=== PATIENT | male | born 1975 | race Caucasian/White ===

== ENCOUNTER 2017-07-11 11:00 | Inpatient (IN) | payer BC, SELFPAY ==
--- NOTE | 2017-07-11 08:26 | US_ITS ---
US abdomen limited: HISTORY: ITS.REASON: RUQ PAIN, FEVER,CHILLS ORDERING PHYSICIAN: Irwin Riddle MD PATIENT AGE: 42 years COMPARISON: None FINDINGS: PANCREAS: Unremarkable. No obvious mass or abnormal fluid collection. No ductal dilatation LIVER: No focal liver lesions demonstrated. Homogeneous echogenicity. No intrahepatic biliary ductal dilatation evident RIGHT KIDNEY: Unremarkable. Normal size and echogenicity. No hydronephrosis GALLBLADDER: There are numerous gallstones. There is mild thickening of the gallbladder wall measuring up to 5 mm. No pericholecystic fluid or biliary dilatation evident. The common duct is normal at 4 mm. IMPRESSION: Cholelithiasis with mild gallbladder wall thickening
[2017-07-11 10:02] LABS: Basophils # 0.1 K/mm3 (0-0.2); Basophils % 0.4 % (0.1-2.0); Eosinophils # 0.2 K/mm3 (0.0-0.4); Eosinophils % 1.2 % (0.1-12.0); Hematocrit 50.4 % (42.0-52.0); Hemoglobin 16.5 g/dL (14.1-18.0); Lymphocytes # 1.8 K/mm3 (0.7-4.5); Lymphocytes % 11.2 K/mm3 (10-50); Mean Corpuscular HGB Conc 32.8 g/dL (31.8-35.4); Mean Corpuscular Hemoglobin 29.7 pg (27.0-31.2); Mean Corpuscular Volume 90.6 fl (80-94); Mean Platelet Volume 8.3 fl (7.4-10.4); Monocytes # 0.8 K/mm3 (0.1-1.0); Monocytes % 5.1 % (1.7-9.3); Neutrophils % 82.1 % (37.0-80.0); Platelet Count 227 K/mm3 (142-424); Red Blood Count 5.56 M/mm3 (4.60-6.20); Red Cell Distribution Width 12.6 % (11.5-17.5); White Blood Count 15.9 K/mm3 (4.8-10.8)
[2017-07-11 10:18] LABS: MANUAL DIFFERENTIAL MANUAL DIFFERENTIAL (MANUAL DIFF)
[2017-07-11 10:20] LABS: Alanine Aminotransferase 37 U/L (12-78); Albumin Level 3.8 gm/dL (3.4-5.0); Albumin/Globulin Ratio 0.8 (1.1-1.8); Alkaline Phosphatase 101 U/L (46-116); Amylase 31 U/L (25-125); Anion Gap 14.3 mEq/L (5-15); Aspartate Amino Transferase 14 U/L (15-37); Bilirubin,Total 2.3 mg/dL (0.2-1.0); Blood Urea Nitrogen 14 mg/dL (7-18); Carbon Dioxide 26 mmol/L (21.0-32.0); Chloride 99 mmol/L (98-107); Creatinine,Serum 1.17 mg/dL (0.70-1.30); Estimated Glomerular Filt Rate 69 ml/min (>60); GFR (African American) 83 ML/MIN (>60); Globulin 4.7 gm/dl (1.3-3.2); Glucose 105 mg/dL (74-106); Lipase 62 u/L (73-393); Potassium 4.3 mmoL/L (3.5-5.1); Sodium 135 mmol/L (136-145); Total Protein,Serum 8.5 gm/dL (6.4-8.2)
[2017-07-11 10:58] LABS: Eosinophils % 2 % (0-3); Lymphocytes % 7 % (10-50); Monocytes % 14 % (2-9); Neutrophils % 76 % (42-76); Total Cells Counted 100
[2017-07-11 10:59] LABS: Platelet Estimate Normal; RBC Morphology Normal
[2017-07-11 11:04] VITALS: BMI 33.6
[2017-07-11 11:20] VITALS: BP 147/85; PULSE 86; RESP 18; TEMP 37.3; O2SAT 97
--- NOTE | 2017-07-11 11:59 | HMH.PHACONS ---
- Pharmacy Consult Date: 07/11/17 Time: 11:59 Referring provider: DR. SCHULTZ Reason for Consult:: TOBRAMYCIN DOSING Allergies and ADEs:: Allergies Allergy/AdvReac Type Severity Reaction Status Date / Time No Known Allergies Allergy Unverified 04/25/17 15:10 Home Medications:: Home Medications Medication Instructions Recorded Confirmed Type Unobtainable [Unobtainable] 07/11/17 07/11/17 History Height: 1.85 m Weight: 115.666 kg Laboratory Results:: Laboratory Results - last 24 hr 07/11/17 09:45: Sodium 135 L, Potassium 4.3, Chloride 99, Carbon Dioxide 26, Anion Gap 14.3, BUN 14, Creatinine 1.17, Estimated GFR 69, Est GFR ( Amer) 83, Glucose 105, Calcium 9.0, Total Bilirubin 2.3 H, AST 14 L, ALT 37, Alkaline Phosphatase 101, Total Protein 8.5 H, Albumin 3.8, Globulin 4.7 H, Albumin/Globulin Ratio 0.8 L, Amylase 31, Lipase 62 L 07/11/17 09:45: WBC 15.9 H, RBC 5.56, Hgb 16.5, Hct 50.4, MCV 90.6, MCH 29.7, MCHC 32.8, RDW 12.6, Plt Count 227, MPV 8.3, Neut % (Auto) 82.1 H, Lymph % (Auto) 11.2, [place] % (Auto) 5.1, Eos % (Auto) 1.2, Baso % (Auto) 0.4, Neut # (Auto) 13.0 H, Lymph # (Auto) 1.8, [place] # (Auto) 0.8, Eos # (Auto) 0.2, Baso # (Auto) 0.1, Total Counted 100, Neutrophils % (Manual) 76, Lymphocytes % (Manual) 7 L, Monocytes % (Manual) 14 H, Eosinophils % (Manual) 2, Basophils % (Manual) 1.0, Platelet Estimate Normal, RBC Morphology Normal Medical History: Denies:: Cancer, Diabetes Mellitus Type 1, Diabetes Mellitus Type 2, MRSA Assessment and Plan - Assessment and plan all Dx Assessment and Plan for all problems:: BASED ON PATIENT'S FACTORS, RECOMMEND STARTING WITH TOBRAMYCIN 480 MG Q24H AT 1300 TODAY. PHARMACY WILL FOLLOW DAILY AND ADJUST APPROPRIATE. DELLA BRICEÑO, PHARMD
--- NOTE | 2017-07-11 12:50 | PC.NURSE ---
paged surgeon education instructor at [phone] time for consult. awaiting call back
--- NOTE | 2017-07-11 13:06 | XR_ITS ---
XR acute abdomen series HISTORY: ITS.REASON: abdominal pain ORDERING PHYSICIAN: Irwin Riddle MD PATIENT AGE: 42 years COMPARISON: None FINDINGS: Frontal view of the chest shows no acute finding. Upright and supine views of the abdomen show nonspecific nonobstructive bowel gas pattern. A surgical clip is present in the mid pelvic region. No acute bony anomalies or abnormal calcifications. IMPRESSION: Negative acute abdominal series
--- NOTE | 2017-07-11 13:13 | HMH.GSCON ---
*Admission Date: 07/11/17 *Chief complaint: Abdominal pain *History of present illness: Patient is a 42-year-old white male from [place] who is a direct admit from [facility] internal medicine today. He gives a several day history of intermittent severe bowel pain. He has had several acute exacerbations with attacks of significant pain. This is mostly located in the mid upper abdomen and right upper quadrant. He had been seen in the emergency department in [place] on 07/08/17. Exact details of this evaluation are unclear. However the patient states that it was recommended he follow-up with his primary care provider for possible gallbladder evaluation. He was seen in the office yesterday and had an ultrasound ordered this morning. Ultrasound report is pending at the time of this dictation but review of imaging reveals gallstones. He was admitted for inpatient management due to ongoing right upper quadrant pain and tenderness along with fevers and chills. Surgical consultation was obtained. Review of Systems - Constitutional Reports body ache(s), Reports chills, Reports fever(s) - Eyes Denies change in vision - ENT Denies abnormal hearing - *Cardiovascular Denies chest pain - *Respiratory Denies shortness of breath - *Gastrointestinal Reports abdominal pain, Denies change in stools - *Genitourinary Denies difficulty urinating Comments: Positive for dark colored urine - *Musculoskeletal Denies abnormal walking - *Neurologic Denies dizziness [facility] History Medical History: Denies:: Cancer, Diabetes Mellitus Type 1, Diabetes Mellitus Type 2, MRSA Comment: Achalasia Other Surgeries: Yes: EGD (multiple for dilation), Other (Laparoscopic Heller myotomy) Amputation: No Fractures: No - *Social History Educational Level: Completed Graduate School Smoking Status: Never smoker Alcohol Intake: never Occupational Status: employed Housing: house Household Members: spouse, children - Psychiatric History Expresses thoughts of harming self/others: None Suicide Plan Description: No Plan *Family Hx:: Coronary Artery Disease, Diabetes Meds Home Medications Medication Instructions Recorded Confirmed Type Hydrocod/Acet 5/325 mg [[place] 1 tab PO Q6HP PRN 07/11/17 07/11/17 History 5/325mg tablet] Naproxen/Esomeprazole Mag [Vimovo 1 each PO BIDP PRN 07/11/17 07/11/[address] 500-20 mg Tablet] Ondansetron [Zofran 4mg ODT] 4 mg PO Q4HP PRN 07/11/17 07/11/17 History Allergies Allergy/AdvReac Type Severity Reaction Status Date / Time No Known Allergies Allergy Unverified 04/25/17 15:10 Exam Vital signs and Labs for Last 24 Hours: Temp Pulse Resp BP Pulse Ox 99.1 F 86 18 147/85 97 07/11/17 11:20 07/11/17 11:20 07/11/17 11:20 07/11/17 11:20 07/11/17 11:20 Laboratory Results - last 24 hr 07/11/17 09:45: Sodium 135 L, Potassium 4.3, Chloride 99, Carbon Dioxide 26, Anion Gap 14.3, BUN 14, Creatinine 1.17, Estimated GFR 69, Est GFR ( Amer) 83, Glucose 105, Calcium 9.0, Total Bilirubin 2.3 H, AST 14 L, ALT 37, Alkaline Phosphatase 101, Total Protein 8.5 H, Albumin 3.8, Globulin 4.7 H, Albumin/Globulin Ratio 0.8 L, Amylase 31, Lipase 62 L 07/11/17 09:45: WBC 15.9 H, RBC 5.56, Hgb 16.5, Hct 50.4, MCV 90.6, MCH 29.7, MCHC 32.8, RDW 12.6, Plt Count 227, MPV 8.3, Neut % (Auto) 82.1 H, Lymph % (Auto) 11.2, [place] % (Auto) 5.1, Eos % (Auto) 1.2, Baso % (Auto) 0.4, Neut # (Auto) 13.0 H, Lymph # (Auto) 1.8, [place] # (Auto) 0.8, Eos # (Auto) 0.2, Baso # (Auto) 0.1, Total Counted 100, Neutrophils % (Manual) 76, Lymphocytes % (Manual) 7 L, Monocytes % (Manual) 14 H, Eosinophils % (Manual) 2, Basophils % (Manual) 1.0, Platelet Estimate Normal, RBC Morphology Normal I & O for Last 24 hours: Intake & Output 07/09/17 07/10/17 07/11/17 07/12/17 11:59 11:59 11:59 11:59 Weight 255 lb 255 lb - Constitutional no acute distress - *Routine Respiratory Exam Present
--- NOTE | 2017-07-11 13:16 | P.CONS_ITS ---
*Admission Date: 07/11/17 *Chief complaint: Abdominal pain *History of present illness: Patient is a 42-year-old white male from [place] who is a direct admit from [facility] internal medicine today. He gives a several day history of intermittent severe bowel pain. He has had several acute exacerbations with attacks of significant pain. This is mostly located in the mid upper abdomen and right upper quadrant. He had been seen in the emergency department in [place] on 07/08/17. Exact details of this evaluation are unclear. However the patient states that it was recommended he follow-up with his primary care provider for possible gallbladder evaluation. He was seen in the office yesterday and had an ultrasound ordered this morning. Ultrasound report is pending at the time of this dictation but review of imaging reveals gallstones. He was admitted for inpatient management due to ongoing right upper quadrant pain and tenderness along with fevers and chills. Surgical consultation was obtained. Review of Systems - Constitutional Reports body ache(s), Reports chills, Reports fever(s) - Eyes Denies change in vision - ENT Denies abnormal hearing - *Cardiovascular Denies chest pain - *Respiratory Denies shortness of breath - *Gastrointestinal Reports abdominal pain, Denies change in stools - *Genitourinary Denies difficulty urinating Comments: Positive for dark colored urine - *Musculoskeletal Denies abnormal walking - *Neurologic Denies dizziness [facility] History Medical History: Denies:: Cancer, Diabetes Mellitus Type 1, Diabetes Mellitus Type 2, MRSA Comment: Achalasia Other Surgeries: Yes: EGD (multiple for dilation), Other (Laparoscopic Heller myotomy) Amputation: No Fractures: No - *Social History Educational Level: Completed Graduate School Smoking Status: Never smoker Alcohol Intake: never Occupational Status: employed Housing: house Household Members: spouse, children - Psychiatric History Expresses thoughts of harming self/others: None Suicide Plan Description: No Plan *Family Hx:: Coronary Artery Disease, Diabetes Meds Home Medications Medication Instructions Recorded Confirmed Type Hydrocod/Acet 5/325 mg [[place] 1 tab PO Q6HP PRN 07/11/17 07/11/17 History 5/325mg tablet] Naproxen/Esomeprazole Mag [Vimovo 1 each PO BIDP PRN 07/11/17 07/11/[address] 500-20 mg Tablet] Ondansetron [Zofran 4mg ODT] 4 mg PO Q4HP PRN 07/11/17 07/11/17 History Allergies Allergy/AdvReac Type Severity Reaction Status Date / Time No Known Allergies Allergy Unverified 04/25/17 15:10 Exam Vital signs and Labs for Last 24 Hours: Temp Pulse Resp BP Pulse Ox 99.1 F 86 18 147/85 97 07/11/17 11:20 07/11/17 11:20 07/11/17 11:20 07/11/17 11:20 07/11/17 11:20 Laboratory Results - last 24 hr 07/11/17 09:45: Sodium 135 L, Potassium 4.3, Chloride 99, Carbon Dioxide 26, Anion Gap 14.3, BUN 14, Creatinine 1.17, Estimated GFR 69, Est GFR ( Amer ) 83, Glucose 105, Calcium 9.0, Total Bilirubin 2.3 H, AST 14 L, ALT 37, Alkaline Phosphatase 101, Total Protein 8.5 H, Albumin 3.8, Globulin 4.7 H, Albumin/Globulin Ratio 0.8 L, Amylase 31, Lipase 62 L 07/11/17 09:45: WBC 15.9 H, RBC 5.56, Hgb 16.5, Hct 50.4, MCV 90.6, MCH 29.7, MCHC 32.8, RDW 12.6, Plt Count 227, MPV 8.3, Neut % (Auto) 82.1 H, Lymph % (Auto ) 11.2, [place] % (Auto) 5.1, Eos % (Auto) 1.2, Baso % (A
--- NOTE | 2017-07-11 13:37 | HMH.HP ---
*Admission Date: 07/11/17 *Chief complaint: RUQ pain *History of present illness: Patient is a 42-year-old white male from [place] who is a direct admit from [facility] internal medicine today. He gives a several day history of intermittent severe bowel pain. He has had several acute exacerbations with attacks of significant pain. This is mostly located in the mid upper abdomen and right upper quadrant. He had been seen in the emergency department in [place] on 07/08/17. Exact details of this evaluation are unclear. However the patient states that it was recommended he follow-up with his primary care provider for possible gallbladder evaluation. He was seen in the office yesterday and had an ultrasound ordered this morning. Ultrasound report is pending at the time of this dictation but review of imaging reveals gallstones. He was admitted for inpatient management due to ongoing right upper quadrant pain and tenderness along with fevers and chills. Surgical consultation was obtained. Above per Dr. Ferris, greatly appreciated. artificial breeding technician called PCP office reporting multiple gallstones and significant wall thickening. WBC and bilirubin were elevated. Patient was admitted for surgical consultation as listed above. [facility] History I have reviewed the patient's past medical history: Yes Medical History: Denies:: Cancer, Diabetes Mellitus Type 1, Diabetes Mellitus Type 2, MRSA Other Surgeries: Yes: EGD (multiple for dilation), Other (Laparoscopic Heller myotomy) Amputation: No Fractures: No - *Social History Educational Level: Completed Graduate School Smoking Status: Never smoker Alcohol Intake: never Occupational Status: employed Housing: house Household Members: spouse, children - Psychiatric History Expresses thoughts of harming self/others: None Suicide Plan Description: No Plan *Family Hx:: Coronary Artery Disease, Diabetes Review of Systems - Review of Systems Review of systems:: pertinent systems reviewed and negative unless documented below - Constitutional Reports chills, Reports fever(s) - *Gastrointestinal Reports abdominal pain, Reports nausea - *Neurologic Denies abnormal walking, Denies abnormal hearing, Denies dizziness Meds Home Medications Medication Instructions Recorded Confirmed Type Hydrocod/Acet 5/325 mg [[place] 1 tab PO Q6HP PRN 07/11/17 07/11/17 History 5/325mg tablet] Naproxen/Esomeprazole Mag [Vimovo 1 each PO BIDP PRN 07/11/17 07/11/17 History 500-20 mg Tablet] Ondansetron [Zofran 4mg ODT] 4 mg PO Q4HP PRN 07/11/17 07/11/17 History Allergies Allergy/AdvReac Type Severity Reaction Status Date / Time No Known Allergies Allergy Unverified 04/25/17 15:10 Exam Vital signs and Labs for Last 24 Hours: Temp Pulse Resp BP Pulse Ox 99.1 F 86 18 147/85 97 07/11/17 11:20 07/11/17 11:20 07/11/17 11:20 07/11/17 11:20 07/11/17 11:20 Laboratory Results - last 24 hr 07/11/17 09:45: Sodium 135 L, Potassium 4.3, Chloride 99, Carbon Dioxide 26, Anion Gap 14.3, BUN 14, Creatinine 1.17, Estimated GFR 69, Est GFR ( Amer) 83, Glucose 105, Calcium 9.0, Total Bilirubin 2.3 H, AST 14 L, ALT 37, Alkaline Phosphatase 101, Total Protein 8.5 H, Albumin 3.8, Globulin 4.7 H, Albumin/Globulin Ratio 0.8 L, Amylase 31, Lipase 62 L 07/11/17 09:45: WBC 15.9 H, RBC 5.56, Hgb 16.5, Hct 50.4, MCV 90.6, MCH 29.7, MCHC 32.8, RDW 12.6, Plt Count 227, MPV 8.3, Neut % (Auto) 82.1 H, Lymph % (Auto) 11.2, [place] % (Auto) 5.1, Eos % (Auto) 1.2, Baso % (Auto) 0.4, Neut # (Auto) 13.0 H, Lymph # (Auto) 1.8, [place] # (Auto) 0.8, Eos # (Auto) 0.2, Baso # (Auto) 0.1, Total Counted 100, Neutrophils % (Manual) 76, Lymphocytes % (Manual) 7 L, Monocytes % (Manual) 14 H, Eosinophils % (Manual) 2, Basophils % (Manual) 1.0, Platelet Estimate Normal, RBC Morphology Normal I & O for Last 24 hours: Intake & Output 07/09/17 07/10/17 07/11/17 07/12/17 11:59 11:59 11:59 11:59 We
--- NOTE | 2017-07-11 13:40 | P.HP_ITS ---
*Admission Date: 07/11/17 *Chief complaint: RUQ pain *History of present illness: Patient is a 42-year-old white male from [place] who is a direct admit from [facility] internal medicine today. He gives a several day history of intermittent severe bowel pain. He has had several acute exacerbations with attacks of significant pain. This is mostly located in the mid upper abdomen and right upper quadrant. He had been seen in the emergency department in [place] on 07/08/17. Exact details of this evaluation are unclear. However the patient states that it was recommended he follow-up with his primary care provider for possible gallbladder evaluation. He was seen in the office yesterday and had an ultrasound ordered this morning. Ultrasound report is pending at the time of this dictation but review of imaging reveals gallstones. He was admitted for inpatient management due to ongoing right upper quadrant pain and tenderness along with fevers and chills. Surgical consultation was obtained. Above per Dr. Ferris, greatly appreciated. special technical operations officer called PCP office reporting multiple gallstones and significant wall thickening. WBC and bilirubin were elevated. Patient was admitted for surgical consultation as listed above. [facility] History I have reviewed the patient's past medical history: Yes Medical History: Denies:: Cancer, Diabetes Mellitus Type 1, Diabetes Mellitus Type 2, MRSA Other Surgeries: Yes: EGD (multiple for dilation), Other (Laparoscopic Heller myotomy) Amputation: No Fractures: No - *Social History Educational Level: Completed Graduate School Smoking Status: Never smoker Alcohol Intake: never Occupational Status: employed Housing: house Household Members: spouse, children - Psychiatric History Expresses thoughts of harming self/others: None Suicide Plan Description: No Plan *Family Hx:: Coronary Artery Disease, Diabetes Review of Systems - Review of Systems Review of systems:: pertinent systems reviewed and negative unless documented below - Constitutional Reports chills, Reports fever(s) - *Gastrointestinal Reports abdominal pain, Reports nausea - *Neurologic Denies abnormal walking, Denies abnormal hearing, Denies dizziness Meds Home Medications Medication Instructions Recorded Confirmed Type Hydrocod/Acet 5/325 mg [[place] 1 tab PO Q6HP PRN 07/11/17 07/11/17 History 5/325mg tablet] Naproxen/Esomeprazole Mag [Vimovo 1 each PO BIDP PRN 07/11/17 07/11/17 History 500-20 mg Tablet] Ondansetron [Zofran 4mg ODT] 4 mg PO Q4HP PRN 07/11/17 07/11/17 History Allergies Allergy/AdvReac Type Severity Reaction Status Date / Time No Known Allergies Allergy Unverified 04/25/17 15:10 Exam Vital signs and Labs for Last 24 Hours: Temp Pulse Resp BP Pulse Ox 99.1 F 86 18 147/85 97 07/11/17 11:20 07/11/17 11:20 07/11/17 11:20 07/11/17 11:20 07/11/17 11:20 Laboratory Results - last 24 hr 07/11/17 09:45: Sodium 135 L, Potassium 4.3, Chloride 99, Carbon Dioxide 26, Anion Gap 14.3, BUN 14, Creatinine 1.17, Estimated GFR 69, Est GFR ( Amer ) 83, Glucose 105, Calcium 9.0, Total Bilirubin 2.3 H, AST 14 L, ALT 37, Alkaline Phosphatase 101, Total Protein 8.5 H, Albumin 3.8, Globulin 4.7 H, Albumin/Globulin Ratio 0.8 L, Amylase 31, Lipase 62 L 07/11/17 09:45: WBC 15.9 H, RBC 5.56, Hgb 16.5, Hct 50.4, MCV 90.6, MCH 29.7, MCHC 32.8, RDW 12.6, Plt Count 227, MPV 8.3, Neut % (Auto) 82.1 H, Lymph % (Auto ) 1
[2017-07-11 16:12] VITALS: BP 128/78; PULSE 94; RESP 18; TEMP 37.9; O2SAT 94
[2017-07-11 18:37] LABS: Tobramycin,Random 3.1 ug/ml
[2017-07-11 20:00] VITALS: BP 127/67; PULSE 82; RESP 18; TEMP 37.1; O2SAT 96
[2017-07-12] VITALS (24 sets, daily range): BP systolic 128–155; BP diastolic 68–93; PULSE 18–84; RESP 13–24; TEMP 36.3–37.4; O2SAT 91–98
--- NOTE | 2017-07-12 | FL_ITS ---
FL fluoroscopy <1hr CLINICAL INDICATION: ITS.REASON: CHOLANGIOGRAM IN O.R. cholelithiasis ORDERING PHYSICIAN: Irwin Riddle MD PATIENT AGE: 42 years Fluoroscopy time: 24 seconds COMPARISON: None FINDINGS: Single image submitted with the C-arm shows contrast injected into what appears to represent the cystic duct which is very small. Common duct is also small with a small amount of reflux up into the common hepatic duct. There is some minimal filling of the pancreatic duct. The distal common bile duct not well opacified. There was extravasation of contrast noted. No obvious common duct stone apparent IMPRESSION: No obvious common duct stone evident
--- NOTE | 2017-07-12 03:28 | PC.NURSE ---
no changes noted from previous assessment, pt has rested brief periods this shift, pt c/o pain in the upper right quadrant, pt rates pain 3-4/10, pt states this is tolerable, the pain improves with rest and is made worse with activity, pt has c/o chills and sweats throughout the shift, pts temperature checked to be wnl, bowel sounds are active, breath sounds are clear to auscultation, vss, no acute distress noted at this time, call light in reach, family at bedside, will continue to monitor.
[2017-07-12 07:02] LABS: Alanine Aminotransferase 34 U/L (12-78); Albumin Level 3.4 gm/dL (3.4-5.0); Albumin/Globulin Ratio 0.8 (1.1-1.8); Alkaline Phosphatase 93 U/L (46-116); Anion Gap 10.7 mEq/L (5-15); Aspartate Amino Transferase 15 U/L (15-37); Bilirubin,Total 1.7 mg/dL (0.2-1.0); Blood Urea Nitrogen 15 mg/dL (7-18); Calcium 8.8 mg/dL (8.5-10.1); Carbon Dioxide 25 mmol/L (21.0-32.0); Chloride 100 mmol/L (98-107); Creatinine Clearance Estimated 157 mL/min (0-300); Creatinine,Serum 1.01 mg/dL (0.70-1.30); Estimated Glomerular Filt Rate 81 ml/min (>60); GFR (African American) 99 ML/MIN (>60); Globulin 4.3 gm/dl (1.3-3.2); Glucose 113 mg/dL (74-106); Potassium 3.7 mmoL/L (3.5-5.1); Sodium 132 mmol/L (136-145); Total Protein,Serum 7.7 gm/dL (6.4-8.2)
[2017-07-12 07:17] LABS: Tobramycin,Random 0.1 ug/ml
--- NOTE | 2017-07-12 07:51 | P.PN_ITS ---
Internal Medicine - PN: Subj *Date: 07/12/17 *Time: 07:50 Interval history: Patient feels somewhat better, breathing is better. Exam Vital signs and Labs for Last 24 Hours: Temp Pulse Resp BP Pulse Ox 98.5 F 68 18 136/83 97 07/12/17 07:21 07/12/17 07:21 07/12/17 07:21 07/12/17 07:21 07/12/17 07:21 Laboratory Results - last 24 hr 07/11/17 09:45: Sodium 135 L, Potassium 4.3, Chloride 99, Carbon Dioxide 26, Anion Gap 14.3, BUN 14, Creatinine 1.17, Estimated GFR 69, Est GFR ( Amer ) 83, Glucose 105, Calcium 9.0, Total Bilirubin 2.3 H, AST 14 L, ALT 37, Alkaline Phosphatase 101, Total Protein 8.5 H, Albumin 3.8, Globulin 4.7 H, Albumin/Globulin Ratio 0.8 L, Amylase 31, Lipase 62 L 07/11/17 09:45: WBC 15.9 H, RBC 5.56, Hgb 16.5, Hct 50.4, MCV 90.6, MCH 29.7, MCHC 32.8, RDW 12.6, Plt Count 227, MPV 8.3, Neut % (Auto) 82.1 H, Lymph % (Auto ) 11.2, [place] % (Auto) 5.1, Eos % (Auto) 1.2, Baso % (Auto) 0.4, Neut # (Auto) 13.0 H, Lymph # (Auto) 1.8, [place] # (Auto) 0.8, Eos # (Auto) 0.2, Baso # (Auto) 0.1, Total Counted 100, Neutrophils % (Manual) 76, Lymphocytes % (Manual) 7 L, Monocytes % (Manual) 14 H, Eosinophils % (Manual) 2, Basophils % (Manual) 1.0, Platelet Estimate Normal, RBC Morphology Normal 07/11/17 18:00: Random Tobramycin 3.1 07/12/17 06:25: Random Tobramycin 0.1 07/12/17 06:25: Sodium 132 L, Potassium 3.7, Chloride 100, Carbon Dioxide 25, Anion Gap 10.7, BUN 15, Creatinine 1.01, Estimated Creat Clear 157, Estimated GFR 81, Est GFR ( Amer) 99, Glucose 113 H, Calcium 8.8, Total Bilirubin 1.7 H, AST 15, ALT 34, Alkaline Phosphatase 93, Total Protein 7.7, Albumin 3.4 D, Globulin 4.3 H, Albumin/Globulin Ratio 0.8 L I & O for Last 24 hours: Intake & Output 07/09/17 07/10/17 07/11/17 07/12/17 11:59 11:59 11:59 11:59 Intake Total 800 / 800 Balance 800 / 800 Weight 255 lb 255 lb Narrative: Patient is breathing comfortably. Still very tender in the right upper quadrant. No edema. No rash. Assessment and Plan (1) Cholecystitis Current visit: Yes Status: Acute Category: Medical Code(s): K81.9 - Cholecystitis, unspecified - Assessment and plan all Dx Assessment and Plan for all problems:: Agree with antibiotics. Surgical intervention today.
--- NOTE | 2017-07-12 08:32 | HMH.ANESCL ---
[facility] Anesthesia Checklist - Patient Identification Patient Identification: Arm Band - Structural Data Admitted From: Inpatient Planned Operative Procedure/s: lap mellisa with ioc Consent for Planned Operative Procedure(s) Verified: Yes Verified Documents: Surgical Consent, History and Physical - NPO Status Verified Time NPO: 00:00 - Additional verifications Anesthesia Reactions: No - Airway Assessment C-Spine Mobility Assessed: Yes (mp2) TMJ Mobility Assessed: Yes Dentition: Good Dentition - Neurological Assessment Level of Consciousness: Awake, Alert - Anesthesia Plan Anesthesia Risk discussed: Yes Anesthesia Plan: Verified ASA Class: II Anesthesia Type: General [facility] Anesthesia HX I have reviewed the patient's past medical history: Yes Medical History: Reports:: Arrhythmia (hx aflutter in 2010 with ablation- no problems or arrythmias since), Gastroesophageal Reflux Disease(GERD), Kidney Stones Denies:: Cancer, Diabetes Mellitus Type 1, Diabetes Mellitus Type 2, MRSA Laterality Cases: Right: ACL Repair Other Surgeries: Yes: EGD (multiple for dilation), Other (Laparoscopic Heller myotomy) Amputation: No Fractures: No *Family Hx:: Coronary Artery Disease, Diabetes
--- NOTE | 2017-07-12 10:10 | PC.NURSE ---
pt off the floor at this time, for surgery.
--- NOTE | 2017-07-12 10:35 | HMH.PHACONS ---
- Pharmacy Consult Date: 07/12/17 Time: 10:35 Referring provider: DR. SCHULTZ Reason for Consult:: TOBRAMYCIN LEVELS Allergies and ADEs:: Allergies Allergy/AdvReac Type Severity Reaction Status Date / Time No Known Allergies Allergy Unverified 04/25/17 15:10 Home Medications:: Home Medications Medication Instructions Recorded Confirmed Type Hydrocod/Acet 5/325 mg [[place] 1 tab PO Q6HP PRN 07/11/17 07/11/17 History 5/325mg tablet] Ondansetron [Zofran 4mg ODT] 4 mg PO Q4HP PRN 07/11/17 07/11/17 History Height: 1.85 m Weight: 115.666 kg Laboratory Results:: Laboratory Results - last 24 hr 07/11/17 09:45: Total Counted 100, Neutrophils % (Manual) 76, Lymphocytes % (Manual) 7 L, Monocytes % (Manual) 14 H, Eosinophils % (Manual) 2, Basophils % (Manual) 1.0, Platelet Estimate Normal, RBC Morphology Normal 07/11/17 18:00: Random Tobramycin 3.1 07/12/17 06:25: Random Tobramycin 0.1 07/12/17 06:25: Sodium 132 L, Potassium 3.7, Chloride 100, Carbon Dioxide 25, Anion Gap 10.7, BUN 15, Creatinine 1.01, Estimated Creat Clear 157, Estimated GFR 81, Est GFR ( Amer) 99, Glucose 113 H, Calcium 8.8, Total Bilirubin 1.7 H, AST 15, ALT 34, Alkaline Phosphatase 93, Total Protein 7.7, Albumin 3.4 D, Globulin 4.3 H, Albumin/Globulin Ratio 0.8 L Medical History: Reports:: Arrhythmia (hx aflutter in 2010 with ablation- no problems or arrythmias since), Gastroesophageal Reflux Disease(GERD), Kidney Stones Denies:: Cancer, Diabetes Mellitus Type 1, Diabetes Mellitus Type 2, MRSA Assessment and Plan (1) Cholecystitis Current visit: Yes Status: Acute Category: Medical Code(s): K81.9 - Cholecystitis, unspecified - Assessment and plan all Dx Assessment and Plan for all problems:: TOBRAMYCIN LEVELS: 3.5-HOUR POST-INFUSION: 3.1 MCG/ML CALCULATED PEAK: 6.17 MCG/ML 16-HOUR POST-INFUSION: 0.1 MCG/ML CALCULATED TROUGH: 0.01 MCG/ML BASED ON LEVELS AND PATIENT FACTORS, RECOMMEND INCREASING DOSE TO TOBRAMYCIN 660 MG (7 MG/KG/DBW) IV Q24H. PHARMACY WILL FOLLOW DAILY AND ADJUST APPROPRIATE.
--- NOTE | 2017-07-12 10:50 | P.CONPHA_ITS ---
- Pharmacy Consult Date: 07/12/17 Time: 10:35 Referring provider: DR. SCHULTZ Reason for Consult:: TOBRAMYCIN LEVELS Allergies and ADEs:: Allergies Allergy/AdvReac Type Severity Reaction Status Date / Time No Known Allergies Allergy Unverified 04/25/17 15:10 Home Medications:: Home Medications Medication Instructions Recorded Confirmed Type Hydrocod/Acet 5/325 mg [[place] 1 tab PO Q6HP PRN 07/11/17 07/11/17 History 5/325mg tablet] Ondansetron [Zofran 4mg ODT] 4 mg PO Q4HP PRN 07/11/17 07/11/17 History Height: 1.85 m Weight: 115.666 kg Laboratory Results:: Laboratory Results - last 24 hr 07/11/17 09:45: Total Counted 100, Neutrophils % (Manual) 76, Lymphocytes % ( Manual) 7 L, Monocytes % (Manual) 14 H, Eosinophils % (Manual) 2, Basophils % ( Manual) 1.0, Platelet Estimate Normal, RBC Morphology Normal 07/11/17 18:00: Random Tobramycin 3.1 07/12/17 06:25: Random Tobramycin 0.1 07/12/17 06:25: Sodium 132 L, Potassium 3.7, Chloride 100, Carbon Dioxide 25, Anion Gap 10.7, BUN 15, Creatinine 1.01, Estimated Creat Clear 157, Estimated GFR 81, Est GFR ( Amer) 99, Glucose 113 H, Calcium 8.8, Total Bilirubin 1.7 H, AST 15, ALT 34, Alkaline Phosphatase 93, Total Protein 7.7, Albumin 3.4 D, Globulin 4.3 H, Albumin/Globulin Ratio 0.8 L Medical History: Reports:: Arrhythmia (hx aflutter in 2010 with ablation- no problems or arrythmias since), Gastroesophageal Reflux Disease(GERD), Kidney Stones Denies:: Cancer, Diabetes Mellitus Type 1, Diabetes Mellitus Type 2, MRSA Assessment and Plan (1) Cholecystitis Current visit: Yes Status: Acute Category: Medical Code(s): K81.9 - Cholecystitis, unspecified - Assessment and plan all Dx Assessment and Plan for all problems:: TOBRAMYCIN LEVELS: 3.5-HOUR POST-INFUSION: 3.1 MCG/ML CALCULATED PEAK: 6.17 MCG/ML 16-HOUR POST-INFUSION: 0.1 MCG/ML CALCULATED TROUGH: 0.01 MCG/ML BASED ON LEVELS AND PATIENT FACTORS, RECOMMEND INCREASING DOSE TO TOBRAMYCIN 660 MG (7 MG/KG/DBW) IV Q24H. PHARMACY WILL FOLLOW DAILY AND ADJUST APPROPRIATE.
--- NOTE | 2017-07-12 11:03 | SUR.OPER ---
Addendum entered by Honey Perry RN 07/12/17 14:33: [address] 10mm drain placed, bloody drainage noted ssradams Original Note: Ancef 2 gm IV given by [employer] per MD orders for pre operative antibiotic at 0945 ssradams
--- NOTE | 2017-07-12 11:55 | HMH.OPNOTE ---
Date of procedure: 07/12/17 Pre-op Diagnosis:: Acute cholecystitis Post-op Diagnosis:: Same Procedure performed:: Laparoscopic cholecystectomy with intraoperative cholangiogram Surgeon:: Nehemias Ferris MD Ship/Rec/Doc Control(s):: None ROLL SKINNER:: Irwin Munoz Anesthesia: ROSEANN Estimated blood loss (mL): 40 Clinical Note:: Patient is a 42-year-old white male. He has had some indigestion type symptoms recently. However, over the past several days he has had some episodes of severe abdominal pain. This is been mostly located in the upper abdomen and right upper quadrant. He had been seen in an outside hospital emergency department on 07/08/17. There was apparent concern for possible gallbladder and patient had followed up with his primary physician on 07/10/17. He had outpatient gallbladder ultrasound ordered for yesterday morning on 07/11/17. This revealed some thickening of the gallbladder with multiple gallstones. He was also found to have a mildly elevated bilirubin of 2.3 and a leukocytosis. He was admitted for inpatient management and surgical consultation was obtained. Plan was made for cholecystectomy with possible intraoperative cholangiogram. His bilirubin did show some improvement the following day to 1.7. Operative findings:: Patient has severely inflamed acute necrotizing suppurative cholecystitis. There is full-thickness of the gallbladder with partial liquefaction posteriorly with some focal full-thickness necrosis anteriorly. Operative note:: Consent was obtained and patient taken to the operating room. He was given preoperative intravenous antibiotics. General anesthesia was induced via endotracheal tube. Abdomen was prepped and draped in the standard surgical fashion. Subumbilical skin incision was made and while performing abdominal wall lift Veress needle was inserted. CO2 pneumoperitoneum was achieved 15 mmHg. 10/11 mm optical trocar was inserted at the umbilicus. Intraperitoneal contents were visualized. There was noted to be some evidence of acute cholecystitis with omental adhesions and inflammatory process in the upper abdomen. He was positioned in reverse Trendelenburg with left side down. A couple of 5 mm trochars were inserted in the right upper abdomen. 10 mm trocar was inserted in the epigastrium. There was noted to be omental adhesions adherent to the severely acutely inflamed gallbladder. There was evidence of fibrinopurulent exudate. Gallbladder was grasped and retracted anteriorly. Is markedly thickened and tense. The adhesions gallbladder were taken down using blunt dissection. On the anterior gallbladder there is focal full-thickness necrosis without perforation. Infundibulum/Mcclendon's pouch the gallbladder was retracted anterior laterally. Blunt dissection was carried out the neck of the gallbladder. Ultimately the cystic duct was identified and isolated. It was clipped proximal to the gallbladder. Through approximately 2 mm incision in the right upper abdomen taut cholangiocatheter introducer and cholangiocatheter were inserted. With difficulty the cholangiocatheter was manipulated into the cystic duct. It could only be barely inserted into the cystic duct opening where it was secured with a single Hemoclip. Intraoperative cholangiogram was performed which appeared to show evidence of the cholangiocatheter within the cystic duct without obstruction. However imaging was suboptimal due to catheter placement and inflammatory process. Patient was then repositioned and cholangiocatheter was removed. Cystic duct was multiply clipped and divided. Cystic artery was coagulated with Anant ultrasonic harmonic anjali and divided. Gallbladder was dissected free from the liver in a retrograde fashion. There was liquefied necrosis posteriorly of the gallbladder. Please note that during the dissection process there was some avoidable spillage of bile which was suctioned free. Gallbladder was placed within an Endo
--- NOTE | 2017-07-12 12:02 | P.OP_ITS ---
Date of procedure: 07/12/17 Pre-op Diagnosis:: Acute cholecystitis Post-op Diagnosis:: Same Procedure performed:: Laparoscopic cholecystectomy with intraoperative cholangiogram Surgeon:: Nehemias Ferris MD Production Aide(s):: None DEDICATED REGIONAL DRIVER:: Irwin Munoz Anesthesia: ROSEANN Estimated blood loss (mL): 40 Clinical Note:: Patient is a 42-year-old white male. He has had some indigestion type symptoms recently. However, over the past several days he has had some episodes of severe abdominal pain. This is been mostly located in the upper abdomen and right upper quadrant. He had been seen in an outside hospital emergency department on 07/08/17. There was apparent concern for possible gallbladder and patient had followed up with his primary physician on 07/10/17. He had outpatient gallbladder ultrasound ordered for yesterday morning on 07/11/17. This revealed some thickening of the gallbladder with multiple gallstones. He was also found to have a mildly elevated bilirubin of 2.3 and a leukocytosis. He was admitted for inpatient management and surgical consultation was obtained. Plan was made for cholecystectomy with possible intraoperative cholangiogram. His bilirubin did show some improvement the following day to 1.7. Operative findings:: Patient has severely inflamed acute necrotizing suppurative cholecystitis. There is full-thickness of the gallbladder with partial liquefaction posteriorly with some focal full-thickness necrosis anteriorly. Operative note:: Consent was obtained and patient taken to the operating room. He was given preoperative intravenous antibiotics. General anesthesia was induced via endotracheal tube. Abdomen was prepped and draped in the standard surgical fashion. Subumbilical skin incision was made and while performing abdominal wall lift Veress needle was inserted. CO2 pneumoperitoneum was achieved 15 mmHg. 10/11 mm optical trocar was inserted at the umbilicus. Intraperitoneal contents were visualized. There was noted to be some evidence of acute cholecystitis with omental adhesions and inflammatory process in the upper abdomen. He was positioned in reverse Trendelenburg with left side down. A couple of 5 mm trochars were inserted in the right upper abdomen. 10 mm trocar was inserted in the epigastrium. There was noted to be omental adhesions adherent to the severely acutely inflamed gallbladder. There was evidence of fibrinopurulent exudate. Gallbladder was grasped and retracted anteriorly. Is markedly thickened and tense. The adhesions gallbladder were taken down using blunt dissection. On the anterior gallbladder there is focal full-thickness necrosis without perforation. Infundibulum/Mcclendon's pouch the gallbladder was retracted anterior laterally. Blunt dissection was carried out the neck of the gallbladder. Ultimately the cystic duct was identified and isolated. It was clipped proximal to the gallbladder. Through approximately 2 mm incision in the right upper abdomen taut cholangiocatheter introducer and cholangiocatheter were inserted. With difficulty the cholangiocatheter was manipulated into the cystic duct. It could only be barely inserted into the cystic duct opening where it was secured with a single Hemoclip. Intraoperative cholangiogram was performed which appeared to show evidence of the cholangiocatheter within the cystic duct without obstruction. However imaging was suboptimal due to catheter placement and inflammatory process. Patient was then repositioned and cholangiocatheter was removed. Cystic duct was multiply clipped and divided. Cystic artery was coagulated with Anant ultrasonic harmonic anjali and divided. Gallbladder was dissected free f
--- NOTE | 2017-07-12 12:07 | P.PN_ITS ---
[facility] [place] Anesthesia Record Part I Intake, IV Amount: 1,000 Estimated blood loss (mL): 10 Urine output (mL): 10 Blood Products used (#): none Blood Pressure: 144/69 SaO2: 94 Pulse Rate: 72 Respiratory Rate: 18 Temperature: 97.4 F Patient is:: Drowsy, Stable Stable to PACU at:: 12:04
--- NOTE | 2017-07-12 12:08 | P.PN_ITS ---
[facility] Anesthesia Record Part II Discharge Time: 12:04 Destination: Surgical Day Care (OP Surgery) PACU nurse assessment reviewed?: Yes Patient Condition:: Good Anesthesia Complications:: None
--- NOTE | 2017-07-12 12:44 | PC.NURSE ---
pt off unit due to having surgery
--- NOTE | 2017-07-12 15:19 | PC.NURSE ---
25 ml bloody drainage from AUREA drain discarded
--- NOTE | 2017-07-12 20:13 | PC.NURSE ---
Addendum entered by Linnea Estevez CNA 07/12/17 20:16: PT IS INDEPENDENT Original Note: PT OFF FLOOR FOR 1400 PT CHECK, AND WAS ON POST OP VITALS WHEN HE RETURNED.
[2017-07-13] VITALS: BP 163/80; PULSE 67; RESP 20; TEMP 37.2; O2SAT 96
[2017-07-13 04:00] VITALS: BP 159/74; PULSE 64; RESP 18; TEMP 36.7; O2SAT 94
--- NOTE | 2017-07-13 05:16 | PC.NURSE ---
PT HAS SLEPT INTERMITTENTLY TONIGHT. RECEIVED TYLENOL TIMES ONE FOR RIGHT SHOULDER PAIN. PT STATES ABDOMINAL REGION SORE BUT NOT PAINFUL. AUREA BULB SITE WITH DRSG STAINED. EMPTY 15ML OF SEROUS DRAINAGE THIS AM FROM AUREA. PT ABDOMEN WITH DISTENTION, TINKLING BOWEL SOUNDS NOTED THIS AM. PT STATES HE HAS PASSED FLATUS A COUPLE TIMES DURING NIGHT. PT ENCOURAGE TO AMBULATE AND DID WALK AROUND HALLWAY SEVERAL TIMES ON EVENING SHIFT. PT TOLERATING FULL LIQUID DIET.
--- NOTE | 2017-07-13 06:46 | HMH.GSPN ---
Subjective Patient reports: feels better, tolerating liquids well Exam Vital signs and Labs for Last 24 Hours: Temp Pulse Resp BP Pulse Ox 98.1 F 64 18 159/74 94 L 07/13/17 04:00 07/13/17 04:00 07/13/17 04:00 07/13/17 04:00 07/13/17 04:00 Laboratory Results - last 24 hr 07/12/17 06:25: Random Tobramycin 0.1 07/12/17 06:25: Sodium 132 L, Potassium 3.7, Chloride 100, Carbon Dioxide 25, Anion Gap 10.7, BUN 15, Creatinine 1.01, Estimated Creat Clear 157, Estimated GFR 81, Est GFR ( Amer) 99, Glucose 113 H, Calcium 8.8, Total Bilirubin 1.7 H, AST 15, ALT 34, Alkaline Phosphatase 93, Total Protein 7.7, Albumin 3.4 D, Globulin 4.3 H, Albumin/Globulin Ratio 0.8 L I & O for Last 24 hours: Intake & Output 07/10/17 07/11/17 07/12/17 07/13/17 11:59 11:59 11:59 11:59 Intake Total 800 / 800 1641 / 1641 Output Total 15 / 15 Balance 800 / 800 1626 / 1626 Weight 255 lb 255 lb - Constitutional no acute distress - *Routine Respiratory Exam Absent: respiratory distress - *Routine Abdominal Exam Present: soft Comments: AUREA with serosanguineous drainage. Dressing at AUREA site is essentially soaked with serosanguineous drainage (will be removed and a new dressing will be placed). Progress Note: A&P (1) Cholecystitis Status: Acute Assessment and plan: Gangrenous cholecystitis-overall, doing very well status post laparoscopic cholecystectomy with intraoperative cholangiogram. Follow-up morning labs Advance to bland diet Current Visit: Yes
--- NOTE | 2017-07-13 06:47 | PC.NURSE ---
CHANGED DRSG AROUND AUREA DRAIN. REDRESSED WITH 4X4, AND SECURED WITH TAPE. PT TOLERATED WELL. SITE PINK, WITHOUT REDNESS.
[2017-07-13 07:20] LABS: Alanine Aminotransferase 49 U/L (12-78); Albumin Level 3.1 gm/dL (3.4-5.0); Albumin/Globulin Ratio 0.7 (1.1-1.8); Alkaline Phosphatase 95 U/L (46-116); Anion Gap 10.9 mEq/L (5-15); Aspartate Amino Transferase 30 U/L (15-37); Bilirubin,Total 0.7 mg/dL (0.2-1.0); Blood Urea Nitrogen 11 mg/dL (7-18); Calcium 8.8 mg/dL (8.5-10.1); Carbon Dioxide 28 mmol/L (21.0-32.0); Chloride 102 mmol/L (98-107); Creatinine Clearance Estimated 149 mL/min (0-300); Creatinine,Serum 1.07 mg/dL (0.70-1.30); Estimated Glomerular Filt Rate 76 ml/min (>60); GFR (African American) 92 ML/MIN (>60); Globulin 4.5 gm/dl (1.3-3.2); Glucose 132 mg/dL (74-106); Potassium 3.9 mmoL/L (3.5-5.1); Sodium 137 mmol/L (136-145); Total Protein,Serum 7.6 gm/dL (6.4-8.2)
[2017-07-13 07:34] VITALS: BP 138/82; PULSE 60; RESP 18; TEMP 36.6; O2SAT 97
--- NOTE | 2017-07-13 08:04 | P.PN_ITS ---
Internal Medicine - PN: Subj *Date: 07/13/17 *Time: 08:05 Interval history: Patient is sitting up in bed eating breakfast. States he feels much better. Alert and oriented x3. Rate and rhythm regular. Lung sounds clear and equal throughout. Abdomen with mild diffuse tenderness, dressings clean, dry and intact, apparently were recently changed. Normoactive Bowel Sounds. AUREA drain with minimal drainage. Exam Vital signs and Labs for Last 24 Hours: Temp Pulse Resp BP Pulse Ox 97.8 F 60 18 138/82 97 07/13/17 07:34 07/13/17 07:34 07/13/17 07:34 07/13/17 07:34 07/13/17 07:34 Laboratory Results - last 24 hr 07/13/17 06:30: Sodium 137, Potassium 3.9, Chloride 102, Carbon Dioxide 28, Anion Gap 10.9, BUN 11 D, Creatinine 1.07, Estimated Creat Clear 149, Estimated GFR 76, Est GFR ( Amer) 92, Glucose 132 H, Calcium 8.8, Total Bilirubin 0.7, AST 30 D, ALT 49 D, Alkaline Phosphatase 95, Total Protein 7.6 , Albumin 3.1 L, Globulin 4.5 H, Albumin/Globulin Ratio 0.7 L I & O for Last 24 hours: Intake & Output 07/10/17 07/11/17 07/12/17 07/13/17 11:59 11:59 11:59 11:59 Intake Total 800 / 800 2000 Output Total 15 / 15 Balance 800 / 800 1985 Weight 255 lb 255 lb Assessment and Plan (1) Cholecystitis Current visit: Yes Status: Acute Category: Medical Code(s): K81.9 - Cholecystitis, unspecified - Assessment and plan all Dx Assessment and Plan for all problems:: Continue IV antibiotics. Diet advanced to bland this morning.
[2017-07-13 13:06] LABS: Basophils % 0.2 % (0.1-2.0); Eosinophils % 0.1 % (0.1-12.0); Hematocrit 42.8 % (42.0-52.0); Hemoglobin 13.8 g/dL (14.1-18.0); Lymphocytes # 1.3 K/mm3 (0.7-4.5); Lymphocytes % 13.7 K/mm3 (10-50); Mean Corpuscular HGB Conc 32.3 g/dL (31.8-35.4); Mean Platelet Volume 8.6 fl (7.4-10.4); Monocytes # 0.7 K/mm3 (0.1-1.0); Monocytes % 6.8 % (1.7-9.3); Neutrophils # 7.7 K/mm3 (1.8-7.8); Neutrophils % 79.2 % (37.0-80.0); Platelet Count 236 K/mm3 (142-424); Red Blood Count 4.76 M/mm3 (4.60-6.20); Red Cell Distribution Width 12.6 % (11.5-17.5); White Blood Count 9.7 K/mm3 (4.8-10.8)
[2017-07-13 15:48] VITALS: BP 124/75; PULSE 68; RESP 18; TEMP 36.7; O2SAT 97
[2017-07-13 20:00] VITALS: BP 122/78; PULSE 72; RESP 22; TEMP 37.2; O2SAT 95
[2017-07-13 20:50] VITALS: O2SAT 95
[2017-07-14 04:00] VITALS: BP 112/62; PULSE 60; RESP 18; TEMP 36.9; O2SAT 98
--- NOTE | 2017-07-14 04:56 | PC.NURSE ---
NO ACUTE CHANGES NOTED. PT DENIES ANY PAIN. HE STATES THAT HE SOMETIMES HAS SOME DISCOMFORT WITH MOVEMENT. DRESSINGS TO ABD ARE C/D/I. AUREA DRAIN TO (R) SIDE OF ABD. 20 ML OUTPUT EARLY IN SHIFT. WILL EMPTY AGAIN IN AM. PT HAS AMBULATED OUTSIDE OF ROOM IN HALLWAYS. HAS TOLERATED WELL. MEDICATIONS ADMIN PER JUL. WILL CONTINUE TO MONITOR.
[2017-07-14 07:37] VITALS: BP 125/75; PULSE 66; RESP 16; TEMP 36.9; O2SAT 98
--- NOTE | 2017-07-14 07:59 | HMH.GSPN ---
Subjective Patient reports: feels better Narrative: Patient feels really well. No complaints. Tolerating bland diet. Labs normal. UAREA output serous. Exam Vital signs and Labs for Last 24 Hours: Temp Pulse Resp BP Pulse Ox 98.5 F 66 16 125/75 98 07/14/17 07:37 07/14/17 07:37 07/14/17 07:37 07/14/17 07:37 07/14/17 07:37 Laboratory Results - last 24 hr 07/13/17 11:49: WBC 9.7 D, RBC 4.76, Hgb 13.8 L, Hct 42.8, MCV 90.0, MCH 29.0, MCHC 32.3, RDW 12.6, Plt Count 236, MPV 8.6, Neut % (Auto) 79.2, Lymph % (Auto) 13.7, [place] % (Auto) 6.8, Eos % (Auto) 0.1, Baso % (Auto) 0.2, Neut # (Auto) 7.7, Lymph # (Auto) 1.3, [place] # (Auto) 0.7, Eos # (Auto) 0.0, Baso # (Auto) 0.0 07/13/17 11:49: Tobramycin Trough 0.0 I & O for Last 24 hours: Intake & Output 07/11/17 07/12/17 07/13/17 07/14/17 11:59 11:59 11:59 11:59 Intake Total 800 / 800 2000 1698 / 1698 Output Total Balance 800 / 800 1985 1678 / 1678 Weight 255 lb 255 lb - *Routine Abdominal Exam Present: soft, drain. Absent: tenderness Progress Note: A&P - Time Spent With Patient 25 - 35 minutes (Removed AUREA drain. DC home on a few days of oral antibiotics.)
--- NOTE | 2017-07-14 08:02 | HMH.DCSUM ---
General - General Admission date: 07/11/17 Discharge date: 07/14/17 HPI HPI: Patient is a 42-year-old white male from [place] who is a direct admit from [facility] internal medicine today. He gives a several day history of intermittent severe bowel pain. He has had several acute exacerbations with attacks of significant pain. This is mostly located in the mid upper abdomen and right upper quadrant. He had been seen in the emergency department in [place] on 07/08/17. Exact details of this evaluation are unclear. However the patient states that it was recommended he follow-up with his primary care provider for possible gallbladder evaluation. He was seen in the office yesterday and had an ultrasound ordered this morning. Ultrasound report is pending at the time of this dictation but review of imaging reveals gallstones. He was admitted for inpatient management due to ongoing right upper quadrant pain and tenderness along with fevers and chills. Surgical consultation was obtained. Above per Dr. Ferris, greatly appreciated. hvac service tech called PCP office reporting multiple gallstones and significant wall thickening. WBC and bilirubin were elevated. Patient was admitted for surgical consultation as listed above. Hospital Course Hospital Course: Patient was admitted, placed on IV antibiotics because of his significant fever, leukocytosis and the appearance of the gallbladder. Following morning he was taken to surgery. Surgery was done, please see notes. Necrotic gallbladder was able to be removed laparoscopically. [address] drain was left in place. Patient was continued on antibiotics and transfer to the floor. He felt much better and did well overnight. This morning he is doing very nicely. Exam is normalized. AUREA drain was pulled by surgery. Plan will be to discharge patient home. He will have 5 days of antibiotics. Follow-up with surgery and with urology for his nephrolithiasis. Objective Vital signs: Temp Pulse Resp BP Pulse Ox 98.5 F 66 16 125/75 98 07/14/17 07:37 07/14/17 07:37 07/14/17 07:37 07/14/17 07:37 07/14/17 07:37 Narrative: This morning on discharge patient is awake, alert, cardiopulmonary assessment unremarkable, AUREA drain site and other surgical scars look great. Patient without edema. Abdomen soft and nontender. Good bowel sounds. Results Labs on day of discharge: Labs from last 24 hours 07/13/17 07/13/17 11:49 11:49 WBC 9.7 D RBC 4.76 Hgb 13.8 L Hct 42.8 MCV 90.0 MCH 29.0 MCHC 32.3 RDW 12.6 Plt Count 236 MPV 8.6 Neut % (Auto) 79.2 Lymph % (Auto) 13.7 [place] % (Auto) 6.8 Eos % (Auto) 0.1 Baso % (Auto) 0.2 Neut # (Auto) 7.7 Lymph # (Auto) 1.3 [place] # (Auto) 0.7 Eos # (Auto) 0.0 Baso # (Auto) 0.0 Tobramycin Trough 0.0 DS: Diagnosis - Discharge Diagnosis (1) Cholecystitis Status: Resolved (2) Gangrenous cholecystitis Status: Resolved (3) Nephrolithiasis Status: Chronic Discharge Plan - Patient Discharge Instructions ACTIVITY: Continue current activity Patient Instructions: How to Care for a Surgical Wound, DI for Cholecystectomy - Follow up Plan Follow up with: Nehemias Ferris MD [Staff Physician] - Chai Pearce MD [Staff Physician] - 08/03/17 Disposition: Home, Self-Custodial Medications: Home Medications Medication Instructions Recorded Confirmed Type Hydrocod/Acet 5/325 mg [[place] 1 tab PO Q6HP PRN 07/11/17 07/11/17 History 5/325mg tablet] Ondansetron [Zofran 4mg ODT] 4 mg PO Q4HP PRN 07/11/17 07/11/17 History Prescriptions/Medication Reconciliation: New Amoxicillin/Potassium Clav [Augmentin 875-125 Tablet] 1 tab PO Q12H 5 Days #10 tab Continue Ondansetron [Zofran 4mg ODT] 4 mg PO Q4HP PRN PRN Reason: nausea Discontinued Hydrocod/Acet 5/325 mg [[place] 5/325mg tablet] 1 tab PO Q6HP PRN PRN Reason: [place]
--- NOTE | 2017-07-14 08:06 | P.DS_ITS ---
General - General Admission date: 07/11/17 Discharge date: 07/14/17 HPI HPI: Patient is a 42-year-old white male from [place] who is a direct admit from [facility] internal medicine today. He gives a several day history of intermittent severe bowel pain. He has had several acute exacerbations with attacks of significant pain. This is mostly located in the mid upper abdomen and right upper quadrant. He had been seen in the emergency department in [place] on 07/08/17. Exact details of this evaluation are unclear. However the patient states that it was recommended he follow-up with his primary care provider for possible gallbladder evaluation. He was seen in the office yesterday and had an ultrasound ordered this morning. Ultrasound report is pending at the time of this dictation but review of imaging reveals gallstones. He was admitted for inpatient management due to ongoing right upper quadrant pain and tenderness along with fevers and chills. Surgical consultation was obtained. Above per Dr. Ferris, greatly appreciated. senior medical technologist called PCP office reporting multiple gallstones and significant wall thickening. WBC and bilirubin were elevated. Patient was admitted for surgical consultation as listed above. Hospital Course Hospital Course: Patient was admitted, placed on IV antibiotics because of his significant fever , leukocytosis and the appearance of the gallbladder. Following morning he was taken to surgery. Surgery was done, please see notes. Necrotic gallbladder was able to be removed laparoscopically. [address] drain was left in place. Patient was continued on antibiotics and transfer to the floor. He felt much better and did well overnight. This morning he is doing very nicely. Exam is normalized. AUREA drain was pulled by surgery. Plan will be to discharge patient home. He will have 5 days of antibiotics. Follow-up with surgery and with urology for his nephrolithiasis. Objective Vital signs: Temp Pulse Resp BP Pulse Ox 98.5 F 66 16 125/75 98 07/14/17 07:37 07/14/17 07:37 07/14/17 07:37 07/14/17 07:37 07/14/17 07:37 Narrative: This morning on discharge patient is awake, alert, cardiopulmonary assessment unremarkable, AUREA drain site and other surgical scars look great. Patient without edema. Abdomen soft and nontender. Good bowel sounds. Results Labs on day of discharge: Labs from last 24 hours 07/13/17 07/13/17 11:49 11:49 WBC 9.7 D RBC 4.76 Hgb 13.8 L Hct 42.8 MCV 90.0 MCH 29.0 MCHC 32.3 RDW 12.6 Plt Count 236 MPV 8.6 Neut % (Auto) 79.2 Lymph % (Auto) 13.7 [facility] % (Auto) 6.8 Eos % (Auto) 0.1 Baso % (Auto) 0.2 Neut # (Auto) 7.7 Lymph # (Auto) 1.3 [facility] [place] [facility] # (Auto) 0.7 Eos # (Auto) 0.0 Baso # (Auto) 0.0 Tobramycin Trough 0.0 DS: Diagnosis - Discharge Diagnosis (1) Cholecystitis Status: Resolved (2) Gangrenous cholecystitis Status: Resolved (3) Nephrolithiasis Status: Chronic Discharge Plan - Patient Discharge Instructions ACTIVITY: Continue current activity Patient Instructions: How to Care for a Surgical Wound, DI for Cholecystectomy - Follow up Plan Follow up with: Nehemias Ferris MD [Staff Physician] - Chai Pearce MD [Staff Physician] - 08/03/17 Dis
--- NOTE | 2017-07-14 12:16 | PC.NURSE ---
Pt tolerated well this morning, no complaints voiced to nurse. Pt discharged home, via family vehicle. All paperwork/education given to patient prior to discharge. IV removed prior to discharge, pt tolerated well and catheter was intact.
== END 2017-07-14 12:15 | disposition home or self-care (01) | DRG 419 ==
LOC: ICU 13:36 → 2ND 07-12 06:51 → ICU 07-12 13:57
PROVIDERS: Nurse Practitioner Family; Surgery; Admitting Provider Internal Medicine Adolescent Medicine; Family Provider Nurse Anesthetist, Certified Registered; PCP Internal Medicine Adolescent Medicine; Visit Provider Internal Medicine Adolescent Medicine
PROC: 0FT44ZZ Resection of Gallbladder, Percutaneous Endoscopic Approach (ICD-10-PCS; CPT 47562; principal; 2017-07-12 08:45)
DX: K81.0 Acute cholecystitis (principal); N20.0 Calculus of kidney
CPT/HCPCS: 47562; 47563; 36415; 74021; 76000; 76705; 80053; 80200; 82150; 83690; 85007; 85025; 90732; 93005; J0131; J2405; J2543; J2710

== ENCOUNTER → 2017-08-04 10:46 | Outpatient (CLI) | payer BC, SELFPAY ==
[2017-08-04 11:05] LABS: Eosinophils # 0.3 K/mm3 (0.0-0.4); Eosinophils % 6.3 % (0.1-12.0); Hematocrit 47.8 % (42.0-52.0); Hemoglobin 15.1 g/dL (14.1-18.0); Lymphocytes # 1.8 K/mm3 (0.7-4.5); Mean Corpuscular HGB Conc 31.6 g/dL (31.8-35.4); Mean Corpuscular Hemoglobin 28.5 pg (27.0-31.2); Mean Corpuscular Volume 90.3 fl (80-94); Mean Platelet Volume 8.2 fl (7.4-10.4); Monocytes # 0.4 K/mm3 (0.1-1.0); Monocytes % 8.2 % (1.7-9.3); Neutrophils # 1.8 K/mm3 (1.8-7.8); Neutrophils % 42.3 % (37.0-80.0); Platelet Count 218 K/mm3 (142-424); Red Blood Count 5.29 M/mm3 (4.60-6.20); Red Cell Distribution Width 12.7 % (11.5-17.5); White Blood Count 4.3 K/mm3 (4.8-10.8)
[2017-08-04 11:14] LABS: Alanine Aminotransferase 73 U/L (12-78); Albumin Level 3.8 gm/dL (3.4-5.0); Albumin/Globulin Ratio 0.9 (1.1-1.8); Alkaline Phosphatase 99 U/L (46-116); Anion Gap 11.6 mEq/L (5-15); Aspartate Amino Transferase 32 U/L (15-37); Bilirubin,Total 0.7 mg/dL (0.2-1.0); Blood Urea Nitrogen 10 mg/dL (7-18); Calcium 9.2 mg/dL (8.5-10.1); Carbon Dioxide 28 mmol/L (21.0-32.0); Chloride 106 mmol/L (98-107); Creatinine,Serum 0.96 mg/dL (0.70-1.30); Estimated Glomerular Filt Rate 86 ml/min (>60); GFR (African American) 104 ML/MIN (>60); Globulin 4.1 gm/dl (1.3-3.2); Glucose 102 mg/dL (74-106); Potassium 4.6 mmoL/L (3.5-5.1); Sodium 141 mmol/L (136-145); Total Protein,Serum 7.9 gm/dL (6.4-8.2)
[2017-08-04 11:28] LABS: Ammonia < 10 umol/L (19-54)
== END ==
PROVIDERS: Visit Provider Surgery
DX: K82.9 Disease of gallbladder, unspecified (principal)
CPT/HCPCS: 36415; 80053; 82140; 85025

== ENCOUNTER → 2017-12-29 11:22 | Outpatient (CLI) | payer BC, SELFPAY ==
--- NOTE | 2017-12-29 14:35 | CT_ITS ---
CT abdomen pelvis w con CLINICAL INDICATION: Left lower quadrant pain ITS.REASON: LLQ PAIN ORDERING PHYSICIAN: Irwin Riddle MD PATIENT AGE: 42 years COMPARISON: None TECHNIQUE: Axial images obtained with sagittal and coronal reformats. All CT scans at the facility use one or more dose reduction, viz: automated exposure control, ma/kV adjustment per patient size (including targeted exams where dose is matched to indication, i.e. head), or iterative reconstruction technique. PROCEDURE: Oral Contrast: Gastroview IV Contrast: 75 mL's of Isovue-370. FINDINGS: There is dilatation of the distal esophagus with a air-fluid level. This is incompletely imaged. Has the patient had prior esophageal surgery?. The liver, spleen, adrenal glands, pancreas, and kidneys have an unremarkable appearance. No intestinal structures are normal free air. Unremarkable appendix. There is mild thickening of the descending and sigmoid colon which may be related to colitis. No evidence of diverticulitis. No intestinal obstruction or free air. No pelvic mass or focal inflammatory change. No adenopathy. No acute bony anomalies. IMPRESSION: 1. Dilatation of the distal esophagus with air-fluid level. Distal esophageal obstruction is considered. 2. There is mild diffuse thickening of the left colon involving the descending and sigmoid colon. Colitis is considered. This could be infectious/inflammatory. This pattern may also be seen with ischemic colitis. No evidence of pneumatosis. No evidence of diverticulitis
== END ==
PROVIDERS: PCP Internal Medicine Adolescent Medicine; Visit Provider Internal Medicine Adolescent Medicine
DX: R10.32 Left lower quadrant pain (principal)
CPT/HCPCS: 74177; Q9967

== ENCOUNTER → 2018-04-09 10:34 | Outpatient (POV) | payer BC, SELFPAY | PROVIDERS: Visit Provider Nurse Practitioner Acute Care | DX: Z00.00 Encounter for general adult medical examination without abnormal findings (principal) ==

== ENCOUNTER → 2018-06-11 13:59 | Outpatient (POV) | payer BC, SELFPAY | PROVIDERS: Visit Provider Nurse Practitioner Acute Care | DX: Z00.00 Encounter for general adult medical examination without abnormal findings (principal) ==

== ENCOUNTER 2018-06-24 13:58 | Emergency (ER) | payer BC, SELFPAY ==
[2018-06-24 14:08] VITALS: BP 145/78; PULSE 77; RESP 16; TEMP 37; O2SAT 100; BMI 33.6
[2018-06-24 14:38] LABS: Basophils % 0.1 % (0.1-2.0); Eosinophils # 0.1 K/mm3 (0.0-0.4); Eosinophils % 0.4 % (0.1-12.0); Hematocrit 47.6 % (42.0-52.0); Hemoglobin 15.5 g/dL (14.1-18.0); Lymphocytes # 0.7 K/mm3 (0.7-4.5); Lymphocytes % 5.9 % (10-50); Mean Corpuscular HGB Conc 32.6 g/dL (31.8-35.4); Mean Corpuscular Hemoglobin 28.9 pg (27.0-31.2); Mean Corpuscular Volume 88.7 fl (80-94); Monocytes # 0.3 K/mm3 (0.1-1.0); Monocytes % 2.9 % (1.7-9.3); Neutrophils # 10.2 K/mm3 (1.8-7.8); Neutrophils % 90.7 % (37.0-80.0); Platelet Count 224 K/mm3 (142-424); Red Blood Count 5.36 M/mm3 (4.60-6.20); Red Cell Distribution Width 13.4 % (11.5-17.5); White Blood Count 11.2 K/mm3 (4.8-10.8)
[2018-06-24 14:39] LABS: MANUAL DIFFERENTIAL MANUAL DIFFERENTIAL (MANUAL DIFF)
[2018-06-24 14:47] LABS: Alanine Aminotransferase 41 U/L (12-78); Albumin Level 4.3 gm/dL (3.4-5.0); Alkaline Phosphatase 89 U/L (46-116); Anion Gap 16.5 mEq/L (5-15); Bilirubin,Total 0.5 mg/dL (0.2-1.0); Blood Urea Nitrogen 18 mg/dL (7-18); Calcium 9.6 mg/dL (8.5-10.1); Carbon Dioxide 24 mmol/L (21.0-32.0); Chloride 102 mmol/L (98-107); Creatinine Clearance Estimated 111 mL/min (50-200); Creatinine,Serum 1.42 mg/dL (0.70-1.30); Estimated Glomerular Filt Rate 55 ml/min (>60); GFR (African American) 66 ML/MIN (>60); Globulin 4.1 gm/dl (1.3-3.2); Glucose 140 mg/dL (74-106); Sodium 138 mmol/L (136-145); Total Protein,Serum 8.4 gm/dL (6.4-8.2)
[2018-06-24 14:48] LABS: Aspartate Amino Transferase 25 U/L (15-37); Potassium 4.5 mmoL/L (3.5-5.1)
[2018-06-24 14:55] LABS: Lymphocytes % 8 % (10-50); Monocytes % 2 % (2-9); Neutrophils % 89 % (42-76); Platelet Estimate Normal; RBC Morphology Normal; Total Cells Counted 100
--- NOTE | 2018-06-24 15:31 | CT_ITS ---
CT abdomen pelvis wo con INDICATION: Left flank pain since midnight abdominal pain Heller myotomy & achalasia ORDERING PHYSICIAN: Jace Huynh MD PATIENT AGE: 43 years COMPARISON: 12/30/2015 CT abdomen pelvis. Radiodensity reasonable time. He keeps asking 2-year-old be only neck extending about our treatment N which TECHNIQUE: No oral nor IV contrast utilized Axial images obtained with sagittal and coronal reformats. All CT scans at the facility use one or more dose reduction, viz: automated exposure control, ma/kV adjustment per patient size (including targeted exams where dose is matched to indication, i.e. head), or iterative reconstruction technique. FINDINGS: Lung bases... Dilated Distal esophagus with air-fluid level. -But less distended today than on previous 2018 study. Understand the from ER history that patient has Heller myotomy & achalasia. No active disease at the lung bases. The heart normal, upper normal size. Abdomen/pelvis. . Lack of IV contrast decreases sensitivity Liver. No focal lesions except gallbladder is been removed. No biliary ductal dilatation. Pancreas. Unremarkable on this noncontrast study. Adrenals unremarkable. Spleen unremarkable. TRACT RIGHT kidney appears normal. Right foot consistent and ureter unremarkable LEFT KIDNEY hydronephrosis*. Prominent distended left renal pelvis, with dilatation of the entire left ureter down to the bladder-Where we encounter a elongated stone at left UVJ accounting for this left obstructive uropathy. This stone measures 4 mm transverse diameter times nearly 7 mm length. It is on the verge of passing through the left UVJ into the bladder and an suspect and hopeful it will pass on its own. . Slight hazy appearance is seen along the posterior left bladder and the dilated distal left ureter on axial images 125-127 as well as corresponding views. This may reflect some mild periureteral dilatation or possibly mild cystitis related to the stone and inflammation. \Normal size prostate measures 4 cm transverse diameter. Nonspecific Calcification towards the right central portion prostate. GI tract. Stomach, small bowel appears satisfactory. No evidence of appendicitis. Terminal ileum appears satisfactory moderate, generous stool at the right colon with moderate stool at the transverse and left colon. Osseous structures. No significant findings. Facet arthropathy lower L-spine. Small sclerotic focus at the right superior ramus is unchanged since 2018 and likely reflects a small benign bone island. IMPRESSION: Obstructive uropathy on the left....Left hydronephrosis. Dilatation entire left ureter This is due to a 4 mm diameter x 7 mm length stone... on the verge of passing through left UVJ, into the bladder. . There is some trace stranding and inflammation about the posterior bladder and left UVJ in this region reflecting minor localized inflammation from the stone this obstruction.
[2018-06-24 15:33] LABS: Microscopic, Urine URINE MICROSCOPIC (MICROSCOPIC)
[2018-06-24 15:41] LABS: Appearance,Urine CLEAR (Clear); Bilirubin,Urine Negative (Negative); Blood, Urine 2+ (Negative); Color,Urine YELLOW (Yellow); Glucose,Urine (UA) Negative (Negative); Ketones,Urine Negative (Negative); Leukocyte Esterase,Urine Negative (Negative); Nitrate,Urine Negative (Negative); Protein,Urine TRACE (Negative); Specific Gravity, Urine >= 1.030 (1.005-1.030); Urobilinogen,Urine 0.2 EU/dl (0.2)
--- NOTE | 2018-06-24 15:41 | PC.NURSE ---
pt to rad.
[2018-06-24 15:52] LABS: Bacteria,Urine 4+ /lpf; Squamous Epithelial Cell,Urine Occasional #/hpf (0-5); WBC,Urine 20-50 #/hpf (0-3)
--- NOTE | 2018-06-24 15:52 | HMH.EDGENADL ---
ED Disposition Clinical Impression: Left ureteral calculus UTI (urinary tract infection) Qualifiers: Urinary tract infection type: site unspecified Hematuria presence: with hematuria Qualified Code(s): N39.0 - Urinary tract infection, site not specified Disposition: Home, Self-Care Condition on Discharge: Good Instructions: DI for Kidney Stones, DI for Urinary Tract Infection (UTI) Additional Instructions: Follow-up with urologist, Dr. Tavarez, tomorrow as scheduled. Take your CAT scan disc with you. Additional instructions for KIDNEY STONE (URETERAL CALCULUS): Drink plenty of fluids. Strain your urine and save any stones you catch. Return immediately if you develop a fever or have uncontrollable vomiting or uncontrollable pain. Additional instructions for URINARY TRACT INFECTION: Follow-up with your doctor in 2-3 days for urine culture results. Return immediately if you have an uncontrollable fever greater than 102 degrees, severe back or abdominal pain, inability to urinate, or repetetive vomiting. Additional instructions for CONTROLLED SUBSTANCES: You have been prescribed a medication that is a controlled substance. Controlled substances include pain medications known as opiates and sedative nerve medications known as benzodiazepines. Some common opiates include: Codeine (such as Tylenol #3) Hydrocodone (Vicodin, Lortab, Lorcet, [place]) Oxycodone (Percocet, Percodan, Oxycodone, Oxy IR) Some common benzodiazepines include: Diazepam (Valium) Lorazepam (Ativan) Alprazolam (Xanax) Clonazepam (Klonopin) Oxazepam (Serax) All of these controlled substances are highly addictive and frequently abused. Misuse can and frequently does lead to addiction as well as overdose and . Medication should be stored in a locked cabinet or other secure storage unit. Do not store the medication in a motor vehicle. Short term supplies, 3 days or less, are prescribed because of the highly addictive nature of the medication. Any of the controlled substance medication NOT taken should be disposed of properly and NOT SAVED. The recommended method of disposing of unused medications is: Place the medicines in a sealable plastic bag. If the medicine is a solid, crush it or add water to dissolve it. Add something undesirable (cat litter, coffee grounds, etc.) Dispose of sealed bag in household trash Do not flush or pour unused medicines down a sink or drain. Controlled substances should not be shared, given away or sold. Because of the addictive nature and frequent abuse, these medications are sometimes stolen. These medications should be kept in a safe place where they cannot be stolen. Do not keep them in your car or purse. Lost or stolen prescriptions for controlled substances WILL NOT BE REFILLED in this emergency department, regardless of whether a police report was filed. Prescriptions: Oxycodone HCl/Acetaminophen [Percocet 5/325mg tablet] 1 tab PO Q6HP PRN #10 tab PRN Reason: Moderate To Severe Pain Ciprofloxacin HCl [Ciprofloxacin 500mg Tab] 500 mg PO BID #20 tab Ondansetron [Zofran 4mg ODT] 4 mg PO TIDP PRN #10 tab.rapdis PRN Reason: Nausea And Vomiting Tamsulosin HCl [Flomax 0.4mg capsule] 0.4 mg PO HS #10 cap.er.24h Referrals: Irwin Riddle MD [Primary Care Provider] - - Critical Care Critical Care Time: No Attestation: On 06/24/18, the high probability of a clinically significant, sudden or life threatening deterioration of the following system(s) required my full and direct attention, intervention and personal management. The time I documented below is in addition to time spent performing reported procedures but includes the following listed in this critical care notation. Medical Decision Making - Christopher Inquiry Pt receiving controlled substance: Yes Christopher was queried for this patient: Yes Reference #:: [id number] Risks and benefits of using a controlled substance: were discussed with
[2018-06-24 17:18] VITALS: BP 132/71; PULSE 64; RESP 18; TEMP 36.5; O2SAT 96
[2018-06-24 17:37] VITALS: BP 132/71; PULSE 64; RESP 16; TEMP 36.6; O2SAT 96
== END 2018-06-24 17:38 | disposition home or self-care (01) ==
PROVIDERS: Emergency Provider Emergency Medicine; PCP Internal Medicine Adolescent Medicine
DX: N20.1 Calculus of ureter (principal); K57.31 Diverticulosis of large intestine without perforation or abscess with bleeding; K21.9 Gastro-esophageal reflux disease without esophagitis; I48.91 Unspecified atrial fibrillation
CPT/HCPCS: 74176; 80053; 81001; 85007; 85025; 87086; 96365; 96375; 99283; J2405

== ENCOUNTER → 2018-09-14 16:04 | Outpatient (CLI) | payer BC, SELFPAY ==
--- NOTE | 2018-09-14 16:12 | CT_ITS ---
CT abdomen pelvis wo con CLINICAL INDICATION: Left flank pain, prior kidney stone removal ITS.REASON: KIDNEY STONE PROTOCOL ORDERING PHYSICIAN: Cristina Hermosillo APRN PATIENT AGE: 43 years COMPARISON: 06/24/2018 TECHNIQUE: Axial images obtained with sagittal and coronal reformats. All CT scans at the facility use one or more dose reduction, viz: automated exposure control, ma/kV adjustment per patient size (including targeted exams where dose is matched to indication, i.e. head), or iterative reconstruction technique. PROCEDURE: Oral Contrast: None IV Contrast: None . FINDINGS: There is dilatation of the lower esophagus with retained food. This more dilated than when compared to the previous exam. Distal esophageal obstruction or achalasia . Prior cholecystectomy. The spleen, adrenal glands, pancreas, and kidneys have an unremarkable appearance. No renal or ureteral calculi. Previously noted left distal ureteral stone is no longer apparent. No intestinal obstruction or free air. Unremarkable appendix. There is a surgical clip in the central pelvic region. Colonic diverticulosis. No evidence of diverticulitis. There is a small umbilical hernia containing fat. No acute bony findings. IMPRESSION: No acute abdominal or pelvic findings. Previously noted left distal ureteral calculus no longer apparent. Persistent dilated food filled esophagus which could be due to distal esophageal obstruction achalasia
== END ==
PROVIDERS: PCP Internal Medicine Adolescent Medicine; Visit Provider Nurse Practitioner Family
DX: R10.9 Unspecified abdominal pain (principal)
CPT/HCPCS: 74176

== ENCOUNTER → 2020-02-29 10:58 | Outpatient (CLI) | payer BC, SELFPAY ==
--- NOTE | 2020-02-29 12:15 | MR_ITS ---
PROCEDURE: MR HEAD/BRAIN WO CON CLINICAL INDICATION: BELLS PALSY Left-sided facial numbness and abnormal sensation, history of Lucas's palsy COMPARISON: No exams were available for comparison TECHNIQUE: Routine multiplanar multi echo sequences are performed without gadolinium enhancement. FINDINGS: No midline shift, mass effect, intracranial hemorrhage, or hydrocephalus. The cerebellopontine angles, cerebellum, and brainstem have an unremarkable appearance. Unusual increased FLAIR signal is present within the CSF around the upper spinal cord and in the basilar and pre pontine cistern area as well as within the 3rd ventricle and into the choroid plexus of both lateral ventricles medially. This may represent an artifact. Suggest repeat MRI without and with contrast to assure that there is not an infiltrative process within the basilar cisterns. There is 1 small T2 white matter hyperintensity in the right meraz radiata which is nonspecific. The pituitary, optic chiasm, corpus callosum, and craniocervical junction have an unremarkable appearance. No mastoid effusion or sinus air-fluid level. There is some mild mucosal thickening of the sphenoid and ethmoid sinuses. IMPRESSION: 1. Unusual increased CSF signal intensity on the FLAIR images in the skull base and into the 3rd and lateral ventricles possibly due to artifact. Suggest patient return for repeat exam and without and with contrast to exclude an infiltrative process in the CSF. 2. Otherwise negative MRI of the brain without contrast the aside from a single small T2 white matter hyperintensity in the right meraz radiata which is nonspecific. 3. Mild ethmoid sinus disease Dictated by: Azeem Bower MD 03/02/2020 09:47 Azeem Bower MD in [place] 03/02/2020 09:47
== END ==
PROVIDERS: PCP Internal Medicine Adolescent Medicine; Visit Provider Internal Medicine Adolescent Medicine
DX: G51.0 Bell's palsy (principal)
CPT/HCPCS: 70551

== ENCOUNTER → 2020-03-14 09:49 | Outpatient (CLI) | payer BC, SELFPAY ==
--- NOTE | 2020-03-14 10:35 | MR_ITS ---
PROCEDURE: MR HEAD/BRAIN WO/W CON CLINICAL INDICATION: FACIAL PARESTHESIA Lucas's palsy, new onset of left-sided drooling sensation, follow-up abnormal MRI COMPARISON: MR MR HEAD/BRAIN WO CON from 02/29/2020 TECHNIQUE: Routine multiplanar multi echo sequences are performed without and with gadolinium enhancement. FINDINGS: Previously there was unusual increased T2 signal within the basilar cisterns and 3rd and lateral ventricles which was felt to be possibly due to artifact. Patient was recalled for repeat imaging with somewhat different imaging parameters and without and with gadolinium enhancement. No midline shift, mass effect, intracranial hemorrhage, or hydrocephalus is evident. The cerebellopontine angles, cerebellum, and brainstem have an unremarkable appearance. No enhancing lesions. The basilar cisterns, 3rd and lateral ventricles have an unremarkable appearance. Previously noted areas of abnormal signal intensity are not apparent on today's exam and is felt to have represented artifact from somewhat different scanning parameters. There is a small T2 hyperintensity in the right centrum semiovale which is nonspecific. The pituitary, optic chiasm, corpus callosum, and craniocervical junction have an unremarkable appearance. There is mild mucosal thickening of the ethmoid sinuses, maxillary sinuses and right aspect of the sphenoid sinus. IMPRESSION: 1. No acute intracranial findings. Previously noted abnormal signal intensity of the basilar cisterns and ventricles is no longer apparent and is felt to been due to artifact. 2. Small T2 hyperintensity right centrum semiovale suggesting a small gliotic focus. This is nonspecific and not significantly changed. Dictated by: Azeem Bower MD 03/16/2020 10:27 Azeem Bower MD in [place] 03/16/2020 10:27
== END ==
PROVIDERS: PCP Internal Medicine Adolescent Medicine; Visit Provider Internal Medicine Adolescent Medicine
DX: R90.89 Other abnormal findings on diagnostic imaging of central nervous system (principal); R20.2 Paresthesia of skin
CPT/HCPCS: 70553; A9576

== ENCOUNTER → 2020-04-01 08:48 | Outpatient (CLI) | payer BC, SELFPAY ==
--- NOTE | 2020-04-01 09:03 | FL_ITS ---
PROCEDURE: FL BARIUM SWALLOW CLINICAL INDICATION: CHILLS(W/O FEVER), ACHALASIA OF ESOPHAGUS Recent esophageal procedure COMPARISON: CT ABDPELWO CT abdomen pelvis wo con from 09/14/2018 FINDINGS: There is history of achalasia and prior niece in fundoplication. Initial exam performed with 50 50 Gastrografin water mix followed by barium. There has been recent endoscopic surgery of the GE junction. There is nodularity of the mucosa at the distal esophagus with lobular filling in the distal esophagus. No free contrast extravasation. Contrast does flow into the stomach. The esophagus is dilated proximally. IMPRESSION: No evidence of contrast extravasation. There is nodularity at the GE junction which may be due to combination of edema and/or scarring with dilatation of the esophagus proximal to this area consistent with achalasia. Dictated by: Azeem Bower MD 04/01/2020 14:22 Azeem Bower MD in [place] 04/01/2020 14:22
[2020-04-01 09:20] LABS: Basophils # 0.1 K/mm3 (0-0.2); Basophils % 1.2 % (0.1-2.0); Eosinophils # 0.5 K/mm3 (0.0-0.4); Eosinophils % 7.9 % (0.1-12.0); Mean Corpuscular HGB Conc 33.3 g/dL (31.8-35.4); Mean Corpuscular Hemoglobin 30.3 pg (27.0-31.2); Mean Corpuscular Volume 91.1 fl (80-94); Mean Platelet Volume 10.7 fl (7.4-10.4); Monocytes # 0.4 K/mm3 (0.1-1.0); Monocytes % 6.5 % (1.7-9.3); Neutrophils # 3.6 K/mm3 (1.8-7.8); Neutrophils % 54.4 % (37.0-80.0); Platelet Count 256 K/mm3 (142-424); Red Blood Count 5.27 M/mm3 (4.60-6.20); Red Cell Distribution Width 14.7 % (11.5-17.5); White Blood Count 6.5 K/mm3 (4.8-10.8)
[2020-04-01 10:33] LABS: Triiodothryronine (T3) Uptake 30 % (23.5-40.5)
[2020-04-01 10:34] LABS: Free Thyroxine Index 3.5 ug/dL (5.93-13.13); T4 (Thyroxine) 11.6 ug/dl (5.53-11.0)
[2020-04-01 10:47] LABS: Thyroid Stimulating Hormone 1.43 uIU/mL (0.465-4.68)
[2020-04-01 11:03] LABS: Coronavirus 19 IgG Antibody Negative (Negative); Coronavirus 19 IgM Antibody Negative (Negative)
[2020-04-01 11:04] LABS: Chloride 103 mmol/L (98-107)
[2020-04-01 11:05] LABS: Potassium 4.4 mmoL/L (3.5-5.1); Sodium 141 mmol/L (136-145)
[2020-04-01 11:07] LABS: Alanine Aminotransferase 64 U/L (12-78); Aspartate Amino Transferase 33 U/L (17-59); Blood Urea Nitrogen 9 mg/dl (9-20); Estimated Glomerular Filt Rate 92 ml/min (>60); GFR (African American) 111 ML/MIN (>60)
[2020-04-01 11:08] LABS: Albumin Level 4.5 g/dl (3.5-5.0); Albumin/Globulin Ratio 1.5 (1.1-1.8); Alkaline Phosphatase 90 U/L (38-126); Anion Gap 14.4 mEq/L (5-15); Bilirubin,Total 0.9 mg/dl (0.2-1.3); Calcium 9.8 mg/dl (8.4-10.2); Carbon Dioxide 28 mmol/L (22.0-30.0); Globulin 3.1 g/dL (1.3-3.2); Glucose 105 mg/dl (74-100); Total Protein,Serum 7.6 g/dl (6.3-8.2)
[2020-04-01 11:13] LABS: C-Reactive Protein 15.3 mg/L (0-4)
== END ==
PROVIDERS: PCP Internal Medicine Adolescent Medicine; Visit Provider Internal Medicine Adolescent Medicine
DX: Z03.818 Encounter for observation for suspected exposure to other biological agents ruled out (principal); K22.0 Achalasia of cardia; R68.83 Chills (without fever)
CPT/HCPCS: 36415; 74220; 80053; 84436; 84443; 84479; 85025; 86140; 86328; Q9958